=== PATIENT | male | born 1955 | race Caucasian/White ===

== ENCOUNTER 2021-06-05 11:21 | Outpatient (REF) | payer OTHER, SELFPAY ==
--- NOTE | ~2021-06-05 | XR_ITS ---
EXAMINATION: XR ELBOW, RIGHT CLINICAL INFORMATION: Pain. COMPARISON: Previous x-ray April 2013. TECHNIQUE: AP, lateral, and oblique views of the right elbow. FINDINGS: Bone alignment is normal. No acute fracture or dislocation is seen. There are osteophytes at the medial and lateral humeral epicondyles. There is an osteophyte at the medial humeroulnar joint. There is an osteophyte at the triceps tendon insertion to the olecranon. There is an elbow joint effusion. XR/XR elbow RT min 3V IMPRESSION: No fracture seen. 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 Joint effusion.
== END 2021-06-05 11:22 | disposition home or self-care (01) ==
LOC: HO.XRAY 11:21
PROVIDERS: PCP Internal Medicine; Visit Provider Nurse Practitioner
DX: M25.521 Pain in right elbow (principal)
CPT/HCPCS: 73080